=== PATIENT | male | born 1945 | race Caucasian/White ===

== ENCOUNTER → 2017-11-12 | Outpatient (CLI) | payer MEDICARE, BC, OTHER ==
--- NOTE | 2017-11-12 11:35 | 2DMMODE ---
[place] [address] 2 D/M-MODE ECHOCARDIOGRAM Name: ISABELLA CARLTON JR Room: [facility]#: [id number] Admission: 11/12/17 Attend Phys: Zulema Mckeon, Discharge: Date of : 43 Date of Service: 11/12/17 1134 Report #: [id number] THIS REPORT FOR: //name// APPROVED REPORT Study performed: 11/12/2017 10:02:59 EXAM: Comprehensive 2D, Doppler, and color-flow Echocardiogram Patient Location: Out-Patient Status: routine BSA: 2.09 HR: 65 bpm BP: 120/85 mmHg Other Information Study Quality: Good Indications Dyspnea Peripheral Edema 2D Dimensions LVEF(%): 66.37 (>50%) IVSd: 11.56 (7-11mm) LVOT Diam: 20.63 (18-24mm) LVDd: 51.87 mm PWd: 10.35 (7-11mm) Ascending Ao: 34.87 (22-36mm) LVDs: 32.74 (25-40mm) Aortic Root: 34.73 mm [place]'s LVEF: 66.37 % Volumes Left Atrial Volume (Systole) LA ESV Index: 19.00 mL/m2 Aortic Valve AoV Peak John.: 1.19 m/s AO Peak Gr.: 5.62 mmHg LVOT Max P.33 mmHg AO Mean Gr.: 2.93 mmHg LVOT Mean P.68 mmHg LVOT Max V: 0.91 m/s AO V2 VTI: 21.93 cm LVOT Mean V: 0.60 m/s SMILEY (VTI): 3.11 cm2 LVOT V1 VTI: 20.39 cm Mitral Valve E/A Ratio: 0.60 [place] [address] 2 D/M-MODE ECHOCARDIOGRAM Name: ISABELLA CARLTON JR Room: [facility]#: [id number] Admission: 11/12/17 Attend Phys: Zulema Mckeon, Discharge: Date of : 43 Date of Service: 11/12/17 1134 Report #: [id number] MV Decel. Time: 271.42 ms MV E Max Ojhn.: 0.49 m/s MV PHT: 78.71 ms MVA (PHT): 2.79 cm2 TDI E/Lateral E': 8.17 E/Medial E': 7.00 Medial E' John.: 0.07 m/s Lateral E' John.: 0.06 m/s Pulmonary Valve PV Peak John.: 0.97 m/s PV Peak Gr.: 3.80 mmHg Tricuspid Valve RAP Estimate: 5.00 mmHg TR Peak Gr.: 11.71 mmHg RVSP: 16.71 mmHg PA Pressure: 16.71 mmHg Left Ventricle The left ventricle is normal size. There is normal LV segmental wall motion. There is normal left ventricular wall thickness. Left ventricular systolic function is normal. LVEF is 55-60%. Grade I - abnormal relaxation pattern. Right Ventricle The right ventricle is normal size. The right ventricular systolic function is normal. Atria The left atrium size is normal. The right atrium size is normal. Aortic Valve The aortic valve is normal in structure. Trace aortic regurgitation. There is no aortic valvular stenosis. Mitral Valve The mitral valve is normal in structure. There is no mitral valve regurgitation noted. No evidence of mitral valve stenosis. Tricuspid Valve The tricuspid valve is normal in structure. Trace tricuspid regurgitation. No pulmonary hypertension. Pulmonic Valve The pulmonary valve is normal in structure. There [place] [address] 2 D/M-MODE ECHOCARDIOGRAM Name: CARLTONTRENTONFARIDA CHAUDHRY Room: [facility]#: [id number] Admission: 11/12/17 Attend Phys: Zulema Mckeon, Discharge: Date of : 43 Date of Service: 11/12/17 1134 Report #: [id number] valvular regurgitation. Great Vessels The aortic root is normal in size. IVC is normal in size and collapses with >50% inspiration Pericardium There is no pericardial effusion. <Conclusion> The left ventricle is normal size. There is normal left ventricular wall thickness. Left ventricular systolic function is normal. LVEF is 55-60%. Grade I - abnormal relaxation pattern. Trace aortic regurgitation. Trace tricuspid regurgitation. No pulmonary hypertension. IVC is normal in size and collapses with >50% inspiration <ELECTRONICALLY SIGNED> By: Gagandeep Song MD, FACC 11/12/17 1134 1134 1134 Gagandeep Song MD, FACC /INF
== END ==
LOC: M.CRD 09:34
DX: R06.00 Dyspnea, unspecified (principal); R60.9 Edema, unspecified

== ENCOUNTER → 2019-01-23 | Outpatient (CLI) | payer MEDICARE, BC, OTHER | LOC: M.RAD 11:06 | DX: M19.031 Primary osteoarthritis, right wrist (principal) ==